=== PATIENT | female | born 1970 | race Caucasian/White ===

== ENCOUNTER 2021-10-20 10:56 | Outpatient (CLI) | payer BC, MEDICAID, SELFPAY ==
--- NOTE | 2021-10-20 11:15 | US_ITS ---
WS: [id number] TRANSVAGINAL PELVIC ULTRASOUND HISTORY: POSTMENOPAUSAL BLEEDING COMPARISON: None available. Uterus: 7.5 cm x 4.8 cm x 4.0 cm. Anteverted uterus. There is a large mass in the posterior myometriu m with shadowing posteriorly. Mass measures 3.4 x 3.5 cm. This mass is distorting the endometrium. Fa vor this is probably an intramural fibroid. Endometrium: 0.4 cm. Endometrium is distorted and displaced by what is probably an intramural fibroid . Less likely endometrial mass. Right ovary: Prior RIGHT oophorectomy. Left ovary: 3.4 cm x 2.5 cm x 2.5 cm. Ovary is normal size. Cyst within the ovary is probably a small follicle measuring 2.1 x 2.1 cm. Normal vascularity. No free fluid. US/US transvaginal [id number] IMPRESSION: 1. Large predominantly hypoechoic mass with posterior shadowing is probably a fibroid in the posterior myometrium. Fibroid measures 2.4 x 3.5 with significan t displacement anteriorly of the endometrium. 2. Poorly visualized endometrium due to the fibroid displacing the endometrium . The mass is less likely an endometrial neoplasm as it does appear external to the endometrial canal. 3. RIGHT oophorectomy.
== END 2021-10-20 10:57 | disposition home or self-care (01) ==
PROVIDERS: PCP Family Medicine; Visit Provider Family Medicine
DX: N95.0 Postmenopausal bleeding (principal); Z90.721 Acquired absence of ovaries, unilateral
CPT/HCPCS: 76830

== ENCOUNTER → 2021-10-26 13:58 | Outpatient (BNVA) | payer BC, MEDICAID, SELFPAY | PROVIDERS: PCP Family Medicine; Visit Provider Obstetrics & Gynecology | DX: N93.9 Abnormal uterine and vaginal bleeding, unspecified (principal) | CPT/HCPCS: 84443; 85025; 88305 ==

== ENCOUNTER → 2021-11-08 10:08 | Outpatient (BNVA) | payer BC, MEDICAID, SELFPAY | PROVIDERS: PCP Family Medicine; Visit Provider Obstetrics & Gynecology | DX: R39.9 Unspecified symptoms and signs involving the genitourinary system (principal) | CPT/HCPCS: 81000 ==

== ENCOUNTER 2021-11-28 09:53 | Observation (INO) | payer BC, MEDICAID, SELFPAY ==
[2021-11-27 16:24] VITALS: BMI 21.8
[2021-11-28] VITALS (16 sets, daily range): BP systolic 129–161; BP diastolic 77–99; PULSE 49–86; RESP 11–17; TEMP 36.4–37; O2SAT 95–100
--- NOTE | 2021-11-28 06:24 | ANES.PREANE2 ---
Pre-Anesthetic Assessment Height/Weight: Height 1.75 m Weight 67.132 kg Preop Diagnosis: abnormal uterine bleeding, uterine prolapse Operation Date: 11/28/21 07:00 Proposed Procedures p Laparoscopic assisted vaginal hysterectomy 06392, possible bilateral salpingo oophorectomy 94938,N93.9(Not Applicable) - Lillian Torre MD Familial anesthetic complications: None Was Beta Shyla taken within 24 hours: N/A Was Clonidine taken within 24 hours: N/A Social No alcohol and No tobacco Exam alert, oriented x 3, clear to auscultation bilaterally and regular rate & rhythm Airway Cervical ROM: within normal limits Mallampati: Class I Dentition: false Pulmonary Chronic Obstructive Pulmonary Disease and Shortness of Breath CV/HEM None reported AUB, uterine prolapse Hepatic None reported GI Gastroesophageal Reflux Disease Metabolic None reported Musc/skel None reported Neuropsych None reported Anesthetic Plan ASA status: 2 Anesthesia: Anesthesia Evaluation and General Other: We discussed risk and benefits of general anesthesia including PONV, sore throat (sometimes severe), corneal abrasion, positioning and peripheral nerve injuries, life threatening allergic reaction, post operative ICU admission requiring prolonged intubation, aspiration, stroke, heart attack, , and rare incidences of recall. Patient consents to proceed with general anesthesia. Risk of > 500 ml blood loss (7ml/kg in children): No Medications/Allergies Home Medications Medication Instructions Recorded Confirmed Last Taken Type omeprazole 20 mg capsule,delayed 20 mg PO BID 10/26/21 11/28/21 11/28/21 History release Allergies Allergy/AdvReac Type Severity Reaction Status Date / Time No Known Allergies Allergy Verified 11/24/21 15:51 [facility] Anesthesia Medical History Hx of ectopic (~2010) Surgical History History of dental surgery (~2021) Family History Other Family history unknown Social History Smoking and tobacco status: former smoker Female Reproductive History Date of last menstrual period: 10/04/21 Data Anesthesia Cardiac Studies: No Data to Display
[2021-11-28] MEDS: phenazopyridine 100 mg Tablet 200 MG PO ×3 (06:43→21:06)
[2021-11-28] MEDS: CELEcoxib 200 mg Capsule 400 MG PO (06:43)
[2021-11-28] MEDS: gabapentin 300 mg Capsule PO (06:43)
[2021-11-28] MEDS: scopolamine 1.5 Patch 1 PATCH TRANSDERMA (06:50)
[2021-11-28] MEDS: sodium chloride 0.9% 1,000 ML 30 ML IV (07:00)
[2021-11-28] MEDS: acetaminophen 1,000 MG/100 ML PIGGYBACK 400 MG IV (07:03)
[2021-11-28] MEDS: famotidine 20 mg/2 mL INJ IVP (07:08)
--- NOTE | 2021-11-28 07:08 | W.PM.OPSUD ---
Surgery/Procedure H&P Update DATE OF PROCEDURE: November 28, 2021 DATE H&P PERFORMED: 11/24/21 H&P UPDATE INFORMATION: I have reviewed H&P completed within last 30 days, I have examined patient prior to procedure and No changes to prior documentation PREOP DIAGNOSIS: abnormal uterine bleeding, uterine prolapse PLANNED PROCEDURE: Operation Date: 11/28/21 07:00 Proposed Procedures p Laparoscopic assisted vaginal hysterectomy 80228, possible bilateral salpingo oophorectomy 30349,N93.9(Not Applicable) - Lillian Torre MD Related Problem List Diagnoses (1) Uterine prolapse: (2) Abnormal uterine bleeding (AUB):
[2021-11-28] MEDS: diphenhydrAMINE 50 mg/mL SDV 1mL 12.5 MG IVP (07:09)
[2021-11-28] MEDS: ceFAZolin 2,000 MG in sodium chloride 0.9% (plus) 50 ML 100 MG IV ×3 (07:18→23:12)
[2021-11-28 07:25] LABS: Basophils # 0.1 10^3/uL (0.0-0.1); Basophils % 1.5 %; Eosinophils # 0.2 10^3/uL (0.0-0.8); Eosinophils % 3.9 %; Hematocrit 36.7 % (37.0-47.0); Hemoglobin 12.2 g/dL (11.5-15.3); Lymphocytes # 1.4 10^3/uL (0.8-4.8); Lymphocytes % 33.7 %; Mean Corpuscular HGB Conc 33.2 g/dL (30.0-36.0); Mean Corpuscular Hemoglobin 30.7 pg (28.0-34.0); Mean Corpuscular Volume 92.4 fl (81-99); Mean Platelet Volume 11.8 fL (7.4-10.4); Monocytes # 0.4 10^3/uL (0.2-0.9); Monocytes % 9.1 %; Neutrophils # 2.09 10^3/uL (1.8-7.7); Neutrophils % 51.6 %; Nucleated Red Blood Cells % 0 %; Platelet Count 179 10^3/cmm (130-400); Red Blood Count 3.97 10^6/uL (4.1-5.3); Red Cell Distribution Width 13.2 % (12.1-15.1); White Blood Count 4.1 10^3/uL (4.0-10.0)
[2021-11-28 07:47] LABS: Anion Gap 12.3 (5-19); Blood Urea Nitrogen 12 mg/dL (6-20); Calcium 8.9 mg/dL (8.5-10.5); Carbon Dioxide 26 mmol/L (22-29); Chloride 106 mmol/L (98-107); Glomerular Filtration Rate 105.8 mL/min (90-130); Glucose 92 mg/dL (65-115); Osmolality Calculated 289 mOsm/kg (285-295); Potassium 4.3 mmol/L (3.5-5.1); Sodium 140 mmol/L (136-145)
[2021-11-28 08:10] LABS: OR HCG Qualitative Urine Negative (Negative)
[2021-11-28] MEDS: vasopressin 20 unit/mL INJ INJECTION (08:19)
--- NOTE | 2021-11-28 09:32 | PM.OP ---
Operative Report Date of procedure: November 28, 2021 Pre-op diagnosis: Preop Diagnosis abnormal uterine bleeding, uterine prolapse Post-op diagnosis: same Post-op findings: 8 week sized uterus. Possible endometriosis. Normal appearing left tube and ovary Procedure done: LAVH, LSO Specimens removed/disposition: uterus, left tube and ovary to pathology Surgeon: Lillian Torre Anesthesia: General Estimated blood loss (mL): 20 IV fluids (mL): 800 Urine output (mL): 100 Complications: none Condition: stable Disposition: PACU Procedure: The patient was taken to the operating room where general anesthesia was administered and found to be adequate. She was prepped and draped in the normal sterile fashion in the dorsal lithotomy position in [facility]. A Payan catheter was placed. A weighted speculum was placed into the vagina and the anterior lip of the cervix was grasped with a single tooth tenaculum. The Zumi uterine manipulator was placed. The weighted speculum was removed. The gloves were changed and attention was turned to the abdomen. A 5 mm supraumbilical incision was made. Using a 5 mm port with the camera, the port was placed into the abdomen. The abdomen was insufflated. Two low, lateral 5 mm ports were placed on the left and right under direct visualization from the camera. The left tube was grasped and elevated. Using the laparoscopic cautery, the infundibulo pelvic ligament was cauterized and cut. The broad ligament was cauterized and divided as well as the round ligament. The right tube and ovary were absent. The broad ligament as well as the round ligament were cauterized and divided. Attention was then turned to the vaginal portion of the procedure. The weighted speculum was placed into the vagina. The zumi manipulator was removed. The single tooth tenaculum was removed and replaced with the angel's tenaculum. 10 mL of dilute Pitressin was injected at the vesicovaginal junction. A circumferential incision was made at the vesicovaginal junction and the vaginal mucosa reflected cephalad. The posterior peritoneum was entered sharply with the Metzenbaum scissors and the long weighted speculum replaced. Using the Mira clamps the uterosacral ligaments were clamped cut and suture-ligated. The anterior peritoneum was entered sharply with the metzenbaum scissors. Then sequentially the uterine arteries and cardinal ligaments were clamped cut and suture-ligated. A single-tooth tenaculum was used to deliver the uterus. The remaining segement of the utero-ovarian ligaments were clamped cut and suture-ligated bilaterally and the specimen was removed. There was good hemostasis with only mild bleeding from the cuff. The peritoneum was closed with a pursestring using 2-0 Vicryl. The vaginal cuff was closed with 0 Vicryl in a running locked pattern incorporating the uterosacral ligaments into the lateral aspects of the vaginal cuff. The Payan catheter was removed and the cystoscope advanced into the bladder. The patient was given pyridium and bilateral spill was noted. There were no injuries or deficits noted in the bladder. The cystoscope was removed and the Payan was replaced. Vaginal packing was placed for good hemostasis. The gloves and gowns were changed and attention was turned to the abdomen. The ports were closed with 2-0 monocryl with skin glue. The patient tolerated the procedure well. Sponge lap and needle counts were correct x3. She was taken to the recovery room in stable condition.
--- NOTE | 2021-11-28 09:59 | ANE.PACU2 ---
Inpatient post-anesthesia follow up: Airway intact: Yes Vital signs: Temperature 97.5 F Pulse Rate 51 Respiratory Rate 13 Blood Pressure 140/84 Pulse Oximetry 98 Oxygen Delivery Me thod Room Air Oxygen Flow Rate 0 Fraction of Inspir ed Oxygen Hydration adequate: Yes Nausea and vomiting: No Pain level: 1 Mental status: Baseline
[2021-11-28] MEDS: lactated ringers 1,000 ML 125 ML IV ×2 (10:55→21:07)
[2021-11-28] MEDS: ketorolac 30 mg/mL INJ IVP ×3 (10:56→21:06)
[2021-11-28] MEDS: HYDROcodone-acetaminophen 5-325 mg Tablet PO ×2 (13:34→20:16)
[2021-11-28] MEDS: ondansetron 2 mg/ML SDV 2 mL 4 MG IVP (13:38)
[2021-11-28] MEDS: pantoprazole DR 40 mg Tablet PO (20:16)
[2021-11-28] MEDS: docusate sodium 100 mg Capsule PO (20:16)
[2021-11-29 05:00] VITALS: BP 153/76; PULSE 72; RESP 17; TEMP 36.6; O2SAT 97
[2021-11-29] MEDS: HYDROcodone-acetaminophen 5-325 mg Tablet PO (05:33)
[2021-11-29 05:52] LABS: Hemoglobin 11.7 g/dL (11.5-15.3); Mean Corpuscular HGB Conc 32.5 g/dL (30.0-36.0); Mean Corpuscular Hemoglobin 30.1 pg (28.0-34.0); Mean Corpuscular Volume 92.5 fl (81-99); Mean Platelet Volume 11.7 fL (7.4-10.4); Platelet Count 194 10^3/cmm (130-400); Red Blood Count 3.89 10^6/uL (4.1-5.3); Red Cell Distribution Width 13.2 % (12.1-15.1)
--- NOTE | 2021-11-29 06:18 | PC.NURSE ---
This nurse took pt vaginal packing out on 11/11/2021 at 0515. Packing was intact with very minimal blood on packing.
[2021-11-29] MEDS: phenazopyridine 100 mg Tablet 200 MG PO (09:06)
[2021-11-29] MEDS: ibuprofen 800 mg tablet PO (09:06)
[2021-11-29] MEDS: docusate sodium 100 mg Capsule PO (09:06)
[2021-11-29] MEDS: pantoprazole DR 40 mg Tablet PO (09:06)
[2021-11-29 10:00] VITALS: BP 148/80; PULSE 80; RESP 17; TEMP 36.7; O2SAT 98
--- NOTE | 2021-11-29 10:47 | PM.DCS ---
Discharge Providers Date of Admission: 11/28/21 09:53 Date of Discharge: November 29, 2021 Attending Provider at Admission: Lillian Torre MD Attending Provider at Discharge: Lillian Torre MD Primary Care Provider: Joyce Franklin DO Diagnoses at Discharge Discharge Diagnosis (1) Uterine prolapse: Status: Acute (2) Abnormal uterine bleeding (AUB): Status: Acute Hospital Course Hospital Course The patient was admitted for surgery. She did well postoperatively and was ready for discharge Physical Exam Narrative: The patient is doing well today. She is ambulating, tolerating a regular diet and pain is well controlled. Const: COMMON NORMALS: no acute distress, average body habitus, patient oriented x3, no limitations, healthy appearing, alert and well nourished Resp: COMMON NORMALS: normal respiratory effort EFFORT & INSPECTION: Yes able to speak in complete sentences GI: COMMON NORMALS: Soft to palpation and non-tender PALPATION: Yes Soft to palpation Extremity: COMMON NORMALS: no calf tenderness Neuro: COMMON NORMALS: patient oriented x3 SENSORIUM/ORIENTATION: Yes alert Urinary Catheter Management: Payan: Cath Placed During This Visit: yes, but has since been removed by the nurse Reason for Continuing Indwelling Catheter: Decision to DC Catheter Urinary Catheter Date of Insertion: 11/28/21 Urinary Catheter Time of Insertion: 07:52 Date Urinary Catheter Removed: 11/29/21 Time Urinary Catheter Discontinued: 05:15 Discharge Data Studies Completed and Pending Pending at discharge Category Date Time Status ES surgery / GI images Routine Exams 11/28/21 06:49 Taken Retype for Patiets ABO/Rh Routine Lab 11/28/21 08:15 Ordered Pathology: Surgical [PTH] Routine Pth 11/28/21 09:33 Received Laboratory Results WBC 10.0 10^3/uL (4.0-10.0) 11/29/21 05:44 RBC 3.89 10^6/uL (4.1-5.3) L 11/29/21 05:44 Hgb 11.7 g/dL (11.5-15.3) 11/29/21 05:44 Hct 36.0 % (37.0-47.0) L 11/29/21 05:44 MCV 92.5 fl (81-99) 11/29/21 05:44 MCH 30.1 pg (28.0-34.0) 11/29/21 05:44 MCHC 32.5 g/dL (30.0-36.0) 11/29/21 05:44 RDW 13.2 % (12.1-15.1) 11/29/21 05:44 Plt Count 194 10^3/cmm (130-400) 11/29/21 05:44 MPV 11.7 fL (7.4-10.4) H 11/29/21 05:44 Neut % (Auto) 51.6 % 11/28/21 06:50 Lymph % (Auto) 33.7 % 11/28/21 06:50 [place] % (Auto) 9.1 % 11/28/21 06:50 Eos % (Auto) 3.9 % 11/28/21 06:50 Baso % (Auto) 1.5 % 11/28/21 06:50 Neut # (Auto) 2.09 10^3/uL (1.8-7.7) 11/28/21 06:50 Lymph # (Auto) 1.4 10^3/uL (0.8-4.8) 11/28/21 06:50 [place] # (Auto) 0.4 10^3/uL (0.2-0.9) 11/28/21 06:50 Eos # (Auto) 0.2 10^3/uL (0.0-0.8) 11/28/21 06:50 Baso # (Auto) 0.1 10^3/uL (0.0-0.1) 11/28/21 06:50 Nucleated RBC % (auto) 0 % 11/28/21 06:50 Nucleated RBCs # 0.0 /100WBC 11/28/21 06:50 Sodium 140 mmol/L (136-145) 11/28/21 06:50 Potassium 4.3 mmol/L (3.5-5.1) 11/28/21 06:50 Chloride 106 mmol/L (98-107) 11/28/21 06:50 Carbon Dioxide 26 mmol/L (22-29) 11/28/21 06:50 Anion Gap 12.3 (5-19) 11/28/21 06:50 BUN 12 mg/dL (6-20) 11/28/21 06:50 Creatinine 0.6 mg/dL (0.5-0.9) 11/28/21 06:50 GFR Calculation 105.8 mL/min (90-130) 11/28/21 06:50 Glucose 92 mg/dL (65-115) 11/28/21 06:50 Calculated Osmolality 289 mOsm/kg (285-295) 11/28/21 06:50 Calcium 8.9 mg/dL (8.5-10.5) 11/28/21 06:50 Urine HCG, Qual Negative (Negative) 11/28/21 07:53 Blood Type B Positive 11/28/21 06:50 Rho(D) Type Positive 11/28/21 06:50 Antibody Screen Negative 11/28/21 06:50 Vitals Last Vital Signs Temp 97.9 F 11/29/21 05:00 Pulse 72 11/29/21 05:00 Resp 17 11/29/21 05:00 BP 153/76 11/29/21 05:00 Pulse Ox 97 11/29/21 05:00 O2 Del Method 11/29/21 05:00 O2 Flow Rate 0 11/28/21 09:55 Discharge Plan Discharge Patient Disposition: Home Condition: Stable Prescriptions: New ibuprofen 800 mg Tablet 800 mg PO Q8H Qty: 30 0RF hydrocodone-acetaminophen 5-325 mg Tablet 1 tab PO Q4H PRN (Reason: Moderate To Severe Pain) Qty: 30 0RF docusate sodium 100 mg Capsule 100 mg PO BID Qty: 60 0RF Continued omeprazole 20 mg capsule,delayed release(DR/EC) 20 mg PO BID Discharge Orders: Discharge Order (Routine); Ordered 11/29/21 Ordered By: Lillian Torre Patient Instructions: Opioid Safety Discharge Attestations Time Spent in Discharge Care*: less than 30 min Quality Metrics Clinical Quality Measures [ No reported AMI, CVA or VTE this stay] Coding Level of Care Code Acute Chg FW DC note Diagnoses Uterine prolapse N81.4 Abnormal uterine bleeding (AUB) N93.9
[2021-11-29 14:00] VITALS: BP 170/85; PULSE 75; RESP 18; O2SAT 100
== END 2021-11-29 14:30 | disposition home or self-care (01) ==
LOC: OBGYN 09:53
PROVIDERS: Anesthesiology; Admitting Provider Obstetrics & Gynecology; PCP Family Medicine; Visit Provider Obstetrics & Gynecology
PROC: 0UT9FZZ Resection of Uterus, Via Natural or Artificial Opening With Percutaneous Endoscopic Assistance (ICD-10-PCS; CPT 58552; principal; 2021-11-28 07:00)
DX: N93.9 Abnormal uterine and vaginal bleeding, unspecified (principal); N81.4 Uterovaginal prolapse, unspecified; J44.9 Chronic obstructive pulmonary disease, unspecified; K21.9 Gastro-esophageal reflux disease without esophagitis
CPT/HCPCS: 58552; 36415; 80048; 81025; 84703; 85025; 85027; 86850; 86900; 87086; 88305; G0378; J0360; J1100; J1170; J1200; J1885; J2250; J2370; J2405; J2704; J2710; J3010; J3490; J7030

== ENCOUNTER 2023-03-18 07:48 | Outpatient (CLI) | payer BC, MEDICAID, SELFPAY ==
--- NOTE | 2023-03-18 07:56 | MM_ITS ---
WS: [id number] BILATERAL SCREENING DIGITAL TOMOSYNTHESIS MAMMOGRAM WITH CAD HISTORY: SCREENING COMPARISON: 03/30/2018 and 01/01/2017 Bilateral CC and MLO views with tomosynthesis and synthetic mammography submitted. Computer aided det ection analyzed. Breast composition: The breasts are extremely dense, which lowers the sensitivity of mammography. No suspicious masses, microcalcifications or architectural distortion. IMPRESSION: MM/[place] [id number] BI-RADS: 1-Negative FOLLOW UP: 1 Year Follow-up
== END 2023-03-18 07:49 | disposition home or self-care (01) ==
LOC: RAD 07:48
PROVIDERS: PCP Family Medicine; Visit Provider Nurse Practitioner Family
DX: Z12.31 Encounter for screening mammogram for malignant neoplasm of breast (principal)
CPT/HCPCS: 77063; 77067

== ENCOUNTER 2023-04-10 06:37 | Day surgery (SDC) | payer BC, MEDICAID, SELFPAY ==
[2023-04-10 06:55] VITALS: BP 126/104; PULSE 84; RESP 18; TEMP 36.7; O2SAT 97; BMI 22.0
[2023-04-10] MEDS: sodium chloride 0.9% 1,000 ML 30 ML IV (07:06)
--- NOTE | 2023-04-10 07:38 | P.ANESASSM_ITS ---
Pre-Anesthetic Assessment Height/Weight: Height 1.73 m Weight 65.771 kg Temp Pulse Resp BP Pulse Ox O2 Del Method 98.1 F 84 18 126/104 97 Room Air 04/10/23 06:55 04/10/23 06:55 04/10/23 06:55 04/10/23 06:55 04/10/23 06:55 04/10/23 06:55 Preop Diagnosis: abdominal pain, gerd Operation Date: 04/10/23 08:00 Proposed Procedures p 58012 egd K21.9(Not Applicable) - Vinh Cuevas DO Familial anesthetic complications: none Was Beta Shyla taken within 24 hours: N/A Was Clonidine taken within 24 hours: N/A Last intake: Intake Last Liquid Date 04/10/23 Last Liquid Time 05:40 Last Solid Date 04/09/23 Last Solid Time 19:00 Social No alcohol and No tobacco (quit 9 years ago) Exam alert, oriented x 3 and clear to auscultation bilaterally Airway Mallampati: Class III Dentition: false (implants) History/ROS No significant history except as noted Pulmonary Chronic Obstructive Pulmonary Disease and Shortness of Breath CV/HEM Hypertension None reported Hepatic None reported GI Gastroesophageal Reflux Disease Metabolic None reported Musc/skel Lower Back Pain Neuropsych None reported Anesthetic Plan ASA status: 2 Anesthesia: Anesthesia Evaluation and MAC Risk of > 500 ml blood loss (7ml/kg in children): No Medications/Allergies Home Medications Medication Instructions Recorded Confirmed Last Taken Type omeprazole 20 mg capsule,delayed 20 mg PO BID 10/26/21 04/10/23 04/09/23 History release hydrocodone 5 mg-acetaminophen 325 1 tab PO Q4H PRN Moderate To 11/29/21 04/10/23 Unknown Rx mg tablet Severe Pain #30 tabs estradiol 1 mg tablet (Estrace) 1 mg PO DAILY #90 tabs 01/10/22 04/10/23 04/09/23 Rx lisinopril 10 mg tablet 10 mg PO DAILY #30 tabs 07/04/22 04/10/23 04/09/23 Rx pantoprazole 40 mg tablet,delayed 40 mg PO BID 6 weeks #84 tabs 03/19/23 04/10/23 04/09/23 Rx release (Protonix) sumatriptan succinate 50 mg tablet 50 mg PO PRN PRN Migraine Headache 03/19/23 04/10/23 Unknown History B6 1.7 mg-folic 400 mcg-B12 2.4 1 cap PO .AM 04/01/23 04/10/23 04/09/23 History rdo-mzcvwd-gqjxjbbkpehc oral capsule (Neuriva Plus Brain Performance) biotin 5 mg capsule 5 mg PO DAILY 04/01/23 04/10/23 04/09/23 History buspirone 5 mg tablet 5 mg PO BID 04/01/23 04/10/23 04/09/23 History cyclobenzaprine 10 mg tablet 10 mg PO Q8H PRN Spasms 04/01/23 04/10/23 04/09/23 History docusate sodium 100 mg capsule 200 mg PO DAILY 04/01/23 04/10/23 04/09/23 History hydrochlorothiazide 12.5 mg tablet 12.5 mg PO DAILY 04/01/23 04/10/23 04/09/23 History ibuprofen 800 mg tablet 800 mg PO Q8H PRN Pain 04/01/23 04/10/23 Unknown History losartan 100 mg tablet 100 mg PO DAILY 04/01/23 04/10/23 04/09/23 History magnesium 250 mg tablet 250 mg PO BID 04/01/23 04/10/23 04/09/23 History jhpweixu-uibw-qzadz acid 240 1 tab PO DAILY 04/01/23 04/10/23 04/09/23 History mcg-vit K 120 sbd-xeypuj-dtzo 293 tablet (Alive Women's 50 Plus (fruit-veg blend)) oxybutynin chloride 10 mg 10 mg PO DAILY 04/01/23 04/10/23 04/09/23 History tablet,extended release 24 hr simvastatin 20 mg tablet 20 mg PO DAILY 04/01/23 04/10/23 04/09/23 History Allergies Allergy/AdvReac Type Severity Reaction Status Date / Time No Known Allergies Allergy Verified 04/10/23 06:52 Current Medications Generic Name Dose Route Start Last Admin Trade Name Freq PRN Reason Stop Dose Admin Sodium Chloride 1,000 mls @ 30 mls/hr 04/10/23 06:45 04/10/23 07:06 Sodium Chloride 0.9% IV 04/11/23 06:44 30 mls/hr .Q24H BHAVYA Administration PFSH Anesthesia Medical History Uterine prolapse Abnormal uterine bleeding (AUB) Hx of ectopic (~2010) Surgical History History of dental surgery (~2021) Family History Other Family history unknown Social History Smoking and tobacco/nicotine status: never used tobacco/nicotine Second hand smoke exposure: No Alcohol intake: current Alcohol intake frequency: holidays/special occasions on ly Substance/Drug Use: current Substance/Drug use frequency: few times a week Data Anesthesia Cardiac Studies: No Data to Display
--- NOTE | 2023-04-10 07:41 | W.PM.OPSUD ---
Surgery/Procedure H&P Update DATE OF PROCEDURE: April 10, 2023 DATE H&P PERFORMED: 03/19/23 H&P UPDATE INFORMATION: I have reviewed H&P completed within last 30 days, I have examined patient prior to procedure and No changes to prior documentation PLANNED PROCEDURE: Operation Date: 04/10/23 08:00 Proposed Procedures p 23825 egd K21.9(Not Applicable) - Vinh Cuevas, DO
[2023-04-10 08:18] VITALS: BP 110/84; PULSE 81; RESP 16; TEMP 36.7; O2SAT 100
[2023-04-10 08:23] VITALS: BP 113/83; PULSE 92; RESP 18; O2SAT 100
[2023-04-10 08:33] VITALS: BP 137/113; PULSE 86; RESP 18; O2SAT 100
--- NOTE | 2023-04-10 08:50 | ANE.PACU2 ---
Inpatient post-anesthesia follow up: Airway intact: Yes Vital signs: Temperature 98.0 F Pulse Rate 86 Respiratory Rate 18 Blood Pressure 137/113 Pulse Oximetry 100 Oxygen Delivery Me thod Room Air Oxygen Flow Rate Fraction of Inspir ed Oxygen Hydration adequate: Yes Nausea and vomiting: No Pain level: 1 Mental status: Baseline
== END 2023-04-10 08:51 | disposition home or self-care (01) ==
PROVIDERS: PCP Nurse Practitioner Family; Visit Provider Surgery
PROC: 0DJ08ZZ Inspection of Upper Intestinal Tract, Via Natural or Artificial Opening Endoscopic (ICD-10-PCS; CPT 43235; principal; 2023-04-10 08:00)
DX: K21.9 Gastro-esophageal reflux disease without esophagitis (principal); K22.2 Esophageal obstruction; K44.9 Diaphragmatic hernia without obstruction or gangrene; K29.70 Gastritis, unspecified, without bleeding; Z87.891 Personal history of nicotine dependence; J44.9 Chronic obstructive pulmonary disease, unspecified; I10 Essential (primary) hypertension
CPT/HCPCS: 43239; 76937; 88305; J7030

== ENCOUNTER → 2023-12-10 08:14 | Outpatient (BNVA) | payer BC, MEDICAID, SELFPAY | PROVIDERS: PCP Nurse Practitioner Family; Visit Provider Nurse Practitioner Family | DX: R50.9 Fever, unspecified (principal) | CPT/HCPCS: 87400; 87426 ==

== ENCOUNTER 2024-02-19 08:29 | Day surgery (SDC) | payer BC, MEDICAID, SELFPAY ==
[2024-02-19 08:58] VITALS: BP 144/104; PULSE 88; RESP 18; TEMP 37.1; O2SAT 99; BMI 21.2
[2024-02-19] MEDS: sodium chloride 0.9% 500 ML 15 ML IV (09:05)
--- NOTE | 2024-02-19 10:08 | ANES.PREANE2 ---
Pre-Anesthetic Assessment Height/Weight: Height 5 ft 8 in Weight 140 lb Temp Pulse Resp BP Pulse Ox O2 Del Method 98.8 F 88 18 144/104 99 Room Air 02/19/24 08:58 02/19/24 08:58 02/19/24 08:58 02/19/24 08:58 02/19/24 08:58 02/19/24 08:58 Preop Diagnosis: Dysphagia Operation Date: 02/19/24 09:45 Proposed Procedures p EGD Dilation W/ Balloon 22462, 88268, G0121, k21.9, K92.2(Not Applicable) - Vinh Cuevas DO s Colonoscopy(Not Applicable) - Vinh Cuevas DO Was Beta Shyla taken within 24 hours: N/A Was Clonidine taken within 24 hours: N/A Last intake: Intake Last Liquid Date 02/18/24 Last Liquid Time 21:00 Last Solid Date 02/17/24 Last Solid Time 19:00 Social No alcohol and No tobacco Smokes marijuana Exam alert, oriented x 3, clear to auscultation bilaterally and regular rate & rhythm Airway Submandibular: within normal limits Cervical ROM: within normal limits Mallampati: Class II Comments: Comments: Patient has full implants top and bottom Anesthetic Plan ASA status: 2 Anesthesia: MAC Other: Denies prior issues with anesthesia Completed bowel prep Smokes marijuana, uses occasional inhalers Hypertension on losartan and HCTZ. Preop BP 144/104 GERD on Protonix preop BP 144/104 METs greater than 4 Plan for MAC anesthetic Medications/Allergies Home Medications Medication Instructions Recorded Confirmed Last Taken Type pantoprazole 40 mg tablet,delayed 40 mg PO BID 6 weeks #84 tabs 03/19/23 02/17/24 02/18/24 Rx release (Protonix) sumatriptan succinate 50 mg tablet 50 mg PO PRN PRN Migraine Headache 03/19/23 02/17/24 02/19/24 06:30 History B6 1.7 mg-folic 400 mcg-B12 2.4 1 cap PO .AM 04/01/23 02/17/24 1 Month Ago History klh-fiqact-nspsemdwbjlq oral ~01/18/24 capsule (Neuriva Plus Brain Performance) biotin 5 mg capsule 5 mg PO DAILY 04/01/23 02/17/24 02/18/24 History buspirone 5 mg tablet 5 mg PO BID 04/01/23 02/17/2424 History cyclobenzaprine 10 mg tablet 10 mg PO Q8H PRN Spasms 04/01/23 02/17/24 02/18/24 History hydrochlorothiazide 12.5 mg tablet 12.5 mg PO DAILY 04/01/23 02/17/24 02/18/24 History ibuprofen 800 mg tablet 800 mg PO Q8H PRN Pain 04/01/23 02/19/24 1 Month Ago History ~01/20/24 losartan 100 mg tablet 100 mg PO DAILY 04/01/23 02/17/24 02/18/24 History magnesium 250 mg tablet 250 mg PO BID 04/01/23 02/17/24 02/18/24 History dmivnspy-axgs-mppqq acid 240 1 tab PO DAILY 04/01/23 02/17/24 02/18/24 History mcg-vit K 120 fzj-uflqrg-dpui 293 tablet (Alive Women's 50 Plus (fruit-veg blend)) simvastatin 20 mg tablet 20 mg PO DAILY 04/01/23 02/17/24 02/18/24 History albuterol sulfate 90 mcg/actuation 2 puff inhalation QID PRN 12/10/23 02/19/24 2 Months Ago Rx aerosol inhaler shortness of breath or wheezing ~12/20/23 #6.7 grams albuterol sulfate 90 mcg/actuation 2 inh inhalation QID #1 ea 12/10/23 02/19/24 2 Months Ago Rx breath activated powder ~12/20/23 inhaler,sensor (Proair Digihaler) Allergies Allergy/AdvReac Type Severity Reaction Status Date / Time No Known Allergies Allergy Verified 04/25/23 10:38 Current Medications Generic Name Dose Route Start Last Admin Trade Name Freq PRN Reason Stop Dose Admin Sodium Chloride 500 mls @ 15 mls/hr 02/19/24 08:52 02/19/24 09:05 Sodium Chloride 0.9% IV 02/20/24 08:51 15 mls/hr .Q24H PRN Administration COLONOSCOPY FLUIDS PFSH Anesthesia Medical History Uterine prolapse Abnormal uterine bleeding (AUB) Hx of ectopic (~2010) Surgical History History of dental surgery (~2021) Family History Other Family history unknown Social History Smoking and tobacco/nicotine status: never used tobacco/nicotine Second hand smoke exposure: No Alcohol intake: current Alcohol intake frequency: holidays/special occasions only Substance/Drug Use: current Substance/Drug use frequency: few times a week Data Anesthesia Cardiac Studies: No Data to Display
--- NOTE | 2024-02-19 10:35 | W.PM.OPSUD ---
Surgery/Procedure H&P Update DATE OF PROCEDURE: February 19, 2024 DATE H&P PERFORMED: 02/10/24 H&P UPDATE INFORMATION: I have reviewed H&P completed within last 30 days, I have examined patient prior to procedure and No changes to prior documentation PREOP DIAGNOSIS: Dysphagia PLANNED PROCEDURE: Operation Date: 02/19/24 09:45 Proposed Procedures p EGD Dilation W/ Balloon 82701, 66764, G0121, k21.9, K92.2(Not Applicable) - DO bj [facility] Colonoscopy(Not Applicable) - Vinh Cuevas DO
[2024-02-19 11:23] VITALS: BP 151/107; PULSE 87; RESP 20; TEMP 36.3; O2SAT 98
[2024-02-19 11:41] VITALS: BP 130/94; PULSE 84; RESP 18; O2SAT 100
--- NOTE | 2024-02-19 12:01 | ANE.PACU2 ---
Inpatient post-anesthesia follow up: Airway intact: Yes Vital signs: Temperature 97.3 F Pulse Rate 84 Respiratory Rate 18 Blood Pressure 130/94 Pulse Oximetry 100 Oxygen Delivery Me thod Room Air Oxygen Flow Rate Fraction of Inspir ed Oxygen Hydration adequate: Yes Nausea and vomiting: No Pain level: 1 Mental status: Baseline
== END 2024-02-19 12:01 | disposition home or self-care (01) ==
PROVIDERS: PCP Nurse Practitioner Family; Visit Provider Surgery
PROC: 0DJD8ZZ Inspection of Lower Intestinal Tract, Via Natural or Artificial Opening Endoscopic (ICD-10-PCS; CPT 45378; 2024-02-19 09:45)
DX: R13.10 Dysphagia, unspecified (principal); K29.50 Unspecified chronic gastritis without bleeding; D12.2 Benign neoplasm of ascending colon; K64.8 Other hemorrhoids; K22.2 Esophageal obstruction; K44.9 Diaphragmatic hernia without obstruction or gangrene; I10 Essential (primary) hypertension; K21.9 Gastro-esophageal reflux disease without esophagitis
CPT/HCPCS: 43239; 43249; 45385; 88305; 88342; J2704; J7040

== ENCOUNTER → 2024-04-22 08:53 | Outpatient (BNVA) | payer BC, MEDICAID, SELFPAY | PROVIDERS: PCP Nurse Practitioner Family; Visit Provider Specialist | DX: G56.03 Carpal tunnel syndrome, bilateral upper limbs (principal); M06.4 Inflammatory polyarthropathy; G56.93 Unspecified mononeuropathy of bilateral upper limbs | CPT/HCPCS: 36415; 73130; 80053; 84550; 85025; 85651; 86140; 86200; 86225; 86235; 86431 ==

== ENCOUNTER 2024-04-23 15:22 | Outpatient (CLI) | payer BC, MEDICAID, SELFPAY ==
--- NOTE | 2024-04-23 15:33 | XR_ITS ---
WS: [id number] XR elbow RT 2V [id number] REASON FOR EXAM: RT ELBOW PAIN FINDINGS: No joint effusion identified. No acute fracture identified. Joint spaces of the right elbow are intact and well preserved. XR/XR elbow RT 2V [id number] IMPRESSION: . No significant bone or joint abnormality.
--- NOTE | 2024-04-23 15:34 | XR_ITS ---
WS: [id number] XR shoulder RT min 2V* [id number] REASON FOR EXAM: RT SHOULDER PAIN FINDINGS: No fracture or focal bone lesion. Moderate narrowing of the acromioclavicular joint with moderate subchondral sclerosis and osteophytosis. Glenohumeral space is not optimally demonstrated. There does not appear to be significant narrowing and minimal subchondral sclerosis of the glenoid. No significant subchondral bone abnormality of the humeral head. No significant sclerosis and cystic change in the greater biceps tuberosity. 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 Minimal osteoarthritis in the glenohumeral joint.
== END 2024-04-23 15:23 | disposition home or self-care (01) ==
PROVIDERS: PCP Nurse Practitioner Family; Visit Provider Nurse Practitioner Family
DX: M25.521 Pain in right elbow (principal); M25.511 Pain in right shoulder; M19.011 Primary osteoarthritis, right shoulder; R93.6 Abnormal findings on diagnostic imaging of limbs
CPT/HCPCS: 73030; 73070

== ENCOUNTER → 2024-05-18 10:05 | Outpatient (BNVA) | payer BC, MEDICAID, SELFPAY | PROVIDERS: PCP Nurse Practitioner Family; Visit Provider Specialist | DX: M25.521 Pain in right elbow (principal); M25.529 Pain in unspecified elbow; M77.11 Lateral epicondylitis, right elbow; M46.89 Other specified inflammatory spondylopathies, multiple sites in spine | CPT/HCPCS: 73080 ==

== ENCOUNTER → 2024-05-20 09:44 | Outpatient (BNVA) | payer BC, MEDICAID, SELFPAY | PROVIDERS: PCP Nurse Practitioner Family; Visit Provider Specialist | DX: M77.11 Lateral epicondylitis, right elbow (principal); M19.011 Primary osteoarthritis, right shoulder | CPT/HCPCS: 73030 ==

== ENCOUNTER 2024-07-23 06:00 | Outpatient (CLI) | payer BC, MEDICAID, SELFPAY ==
--- NOTE | 2024-07-23 06:30 | MRR_ITS ---
PROCEDURE INFORMATION: Exam: MR Right Upper Extremity Joint Without Contrast; Shoulder Exam date and time: 07/23/2024 6:32 AM Age: 54 years old Clinical indication: Right; Chronic shoulder pain for over 1 year no known injury; Additional info: M25.511 - pain in right shoulder TECHNIQUE: Imaging protocol: Magnetic resonance imaging of the right upper extremity without contrast. Exam focused on the shoulder. COMPARISON: CR XR shoulder RT min 2V* [id number] 05/20/2024 9:46 AM FINDINGS: Bones/joints: Glenohumeral articular surfaces are intact with low-grade chondromalacia. No evidence of fracture or aggressive osseous lesion. No significant joint effusion. Moderate osteoarthritis without evidence of fracture or subluxation. Glenoid labrum: Irregularity of the posterosuperior labrum suspicious for tear. If further detail is clinically warranted, consider correlation with MR arthrography. Supraspinatus tendon: Intact. Infraspinatus tendon: Intact. Subscapularis tendon: Intact. Teres minor tendon: Intact. Tendon of biceps brachii: Intact. Glenohumeral ligaments: Grossly intact. Soft tissues: No fluid collection or hematoma. MR/MR shoulder RT wo con* [id number] IMPRESSION: 1. Cuff is intact. 2. Suspected posterosuperior labral tear. Consider correlation with follow-up outpatient MR arthrography. 3. AC joint osteoarthritis with marrow edema and marginal osteophytes.
== END 2024-07-23 06:01 | disposition home or self-care (01) ==
PROVIDERS: PCP Nurse Practitioner Family; Visit Provider Specialist
DX: M19.011 Primary osteoarthritis, right shoulder (principal); M25.711 Osteophyte, right shoulder
CPT/HCPCS: 73221

== ENCOUNTER 2024-09-21 07:46 | Outpatient (CLI) | payer BC, MEDICAID, SELFPAY ==
--- NOTE | 2024-09-21 07:50 | MR_ITS ---
WS: [id number] MRI RIGHT SHOULDER ARTHROGRAM HISTORY: right shoulder pain COMPARISON: MRI 07/23/2024 TECHNIQUE: Pre and postcontrast imaging. Gadolinium mixture was injected under fluoroscopy. Coronal T1 fat sat, sagittal T2 fat sat, coronal T2 fat sat, axial proton density, axial T1 nonfat saturation submitted. Moderate AC joint arthritis with osteophyte encroachment upon the myotendinous portion of the supraspinatus. No contrast extends into the subacromial or subdeltoid bursa. No rotator cuff tear is identified. Biceps tendon remains normally positioned in the bicipital groove. Contrast extends into the posterior superior labrum. This corresponds to the findings on the prior MRI. Thin linear area of contrast opacification extends into the superior labrum and extending posteriorly. Anterior labrum is slightly blunted. Seen only on the sagittal sequence is irregularity and is very subtle area of contrast opacification extending into the anterior labrum. MR/MR shoulder RT w con [id number] IMPRESSION: 1. Posterior superior labral tear correspond to the findings on the prior MRI of 07/23/2024. 2. There is a very subtle area of increased contrast opacification extending a lso into the anterior labrum. No full-thickness tear identified. 3. No rotator cuff tendon tear.
--- NOTE | 2024-09-21 08:00 | IR_ITS ---
WS: [id number] RIGHT SHOULDER ARTHROGRAM UNDER FLUOROSCOPY. PRIOR TO MRI EVALUATION. HISTORY: right shoulder pain, possible labral tear. COMPARISON: Prior MRI 07/23/2024 FLUOROSCOPY TIME: 1min [id number] # of spot films: 1 Procedure, risks and complications were explained to the patient. Consent has been obtained. Under fluoroscopic guidance the skin is marked over the medial superior third of the humeral head, cleansed with ChloraPrep and anesthetized with lidocaine. 22- gauge spinal needle is inserted to the cortex of the humeral head. Test injection with Omnipaque reveals the needle is appropriately positioned in the joint. A mixture of 10 cc sterile saline, 5 cc Omnipaque and 0.1 mmol gadolinium are injected under fluoroscopic guidance. Patient tolerated the joint distention well. No complications. IR/IR arthrogram shoulderRT [id number] IMPRESSION: Uncomplicated RIGHT shoulder joint injection prior to MRI.
[2024-09-21] MEDS: gadobenate dimeglumine 20 mL vial IV (16:38)
[2024-09-21] MEDS: iohexol 240 mg/mL 50 mL Btl 25 ML INTRA-ARTI (16:40)
== END 2024-09-21 07:47 | disposition home or self-care (01) ==
LOC: RAD 07:46
PROVIDERS: PCP Nurse Practitioner Family; Visit Provider Specialist
DX: M19.011 Primary osteoarthritis, right shoulder (principal)
CPT/HCPCS: 23350; 73222; 77002; A9577; J9999; Q9966

== ENCOUNTER → 2024-11-22 14:25 | Outpatient (BNVA) | payer BC, MEDICAID, SELFPAY | PROVIDERS: PCP Nurse Practitioner Family; Visit Provider Emergency Medicine | DX: R39.9 Unspecified symptoms and signs involving the genitourinary system (principal) | CPT/HCPCS: 81000 ==

== ENCOUNTER 2025-01-27 11:35 | Outpatient (CLI) | payer BC, MEDICAID, SELFPAY ==
--- NOTE | 2025-01-27 11:40 | MM_ITS ---
WS: [id number] BILATERAL 3D TOMOSYNTHESIS DIGITAL SCREENING MAMMOGRAPHY WITH CAD CLINICAL INFORMATION: SCREENING HISTORY: Screening mammogram. No current complaints. COMPARISON: 2023 TECHNIQUE: Bilateral CC and MLO views. FINDINGS: The breasts are composed of heterogeneous fibroglandular density tissue, which can limit the detection of small underlying mass lesions. No suspicious mass, asymmetry, calcifications, or architectural distortion. No evidence of malignancy. MM/MM scr tomosynthesis [id number] IMPRESSION: DENSITY: The breasts are heterogeneously dense, which may obscure small masses. BI-RADS: 1 - Negative FOLLOW UP: 1 Year Follow-up Recommend return to annual screening mammography.
== END 2025-01-27 11:36 | disposition home or self-care (01) ==
LOC: MOBLMAM 11:37
PROVIDERS: PCP Nurse Practitioner Family; Visit Provider Nurse Practitioner Family
DX: Z12.31 Encounter for screening mammogram for malignant neoplasm of breast (principal); R92.333 Mammographic heterogeneous density, bilateral breasts
CPT/HCPCS: 77063; 77067